=== PATIENT | female | born 1960 | race Two or more races ===

== ENCOUNTER 2024-03-11 14:20 | Inpatient (IN) | payer MEDICAID, OTHER ==
[~2024-03-11] VITALS: Ht 152.4 cm; Wt 76.9 kg
[2024-03-11 15:14] LABS: Basophils # (auto) 0.1 10 ^3/uL (0-0.2); Basophils % (auto) 1.5 % (0.0-2.0); Eosinophils # (auto) 0.1 10 ^3/uL (0-0.8); Eosinophils % (auto) 1.1 % (0.0-7.0); Hematocrit 49.3 % (36.0-46.0); Hemoglobin 16.8 g/dL (12.2-16.2); Lymphocytes # (auto) 2.7 10 ^3/uL (0.4-5.4); Lymphocytes % (auto) 34.3 % (10.0-50.0); Mean Corpuscular Hemoglobin 30.7 pg (28.0-32.0); Mean Corpuscular Volume 90.3 fL (80.0-100.0); Monocytes # (auto) 0.6 10 ^3/uL (0-1.3); Monocytes % (auto) 7.7 % (0.0-12.0); Neutrophils # (auto) 4.3 10 ^3/uL (1.6-8.6); Neutrophils % (auto) 55.4 % (37.0-80.0); Nucleated Red Blood Cells % 0.3 %; Platelet Count (auto) 272 10^3/uL (140-450); Red Blood Cells 5.46 10^6/uL (4.0-5.20); Red Cell Distribution Width 13.2 % (11.8-14.3); White Blood Cell 7.8 10^3/uL (4.4-10.8)
[2024-03-11 15:34] LABS: Alanine Aminotransferase 13 U/L (7-40); Albumin 4.6 g/dL (3.2-4.8); Alkaline Phosphatase 104 U/L (46-116); Anion Gap 8 (5-15); Aspartate Aminotransferase 11 U/L (13-40); BUN/Creatinine Ratio 13.6 (10.0-20.0); Bilirubin, Total 0.7 mg/dL (0.2-1.0); Blood Urea Nitrogen 12 mg/dL (9-23); Calcium 10.4 mg/dL (8.7-10.4); Carbon Dioxide 24 mmol/L (20-31); Chloride 112 mmol/L (98-107); Glucose 128 mg/dL (74-106); Potassium 4.1 mmol/L (3.5-5.1); Sodium 144 mmol/L (136-145); Total Protein 7.7 g/dL (5.7-8.2)
[2024-03-11] MEDS: ASPirin 81 mg TAB PO ONE (17:04)
[2024-03-12] VITALS (9 sets, daily range): BP systolic 117–185; BP diastolic 61–93; PULSE 65–105; RESP 15–19; TEMP 97.7–98.5; O2SAT 93–97
[2024-03-12] MEDS: hydrALAZINE HCL 20 MG/ML VL IV PRN (00:13)
[2024-03-12] MEDS: ATORVASTATIN 20 MG TAB PO ONE (01:45)
[2024-03-12] MEDS ORDERED: ONDANSETRON HCL 4 MG/2 ML VIAL IV PRN (01:45)
[2024-03-12 02:38] LABS: INR 1.03 (0.9-1.15); Prothrombin Time 10.9 sec (9.3-11.8)
[2024-03-12] MEDS: ENOXAPARIN SOD 40 MG/0.4 ML SYRINGE SC SCH (09:27)
[2024-03-12] MEDS: ASPirin 81 mg TAB PO SCH (09:28)
[2024-03-12 11:22] LABS: Folate (Folic Acid) 18.17 ng/mL (>5.38)
[2024-03-12] MEDS: D5W/SOD CHL 0.45% 1,000 ML IV SCH (16:18)
[2024-03-12] MEDS: ATORVASTATIN 20 MG TAB PO SCH (22:00)
[2024-03-13] VITALS (7 sets, daily range): BP systolic 154–183; BP diastolic 76–96; PULSE 71–98; RESP 17–18; TEMP 97.5–98; O2SAT 91–98
[2024-03-13 07:28] LABS: Basophils # (auto) 0.1 10 ^3/uL (0-0.2); Eosinophils # (auto) 0.2 10 ^3/uL (0-0.8); Eosinophils % (auto) 2.2 % (0.0-7.0); Hematocrit 47.6 % (36.0-46.0); Hemoglobin 16.2 g/dL (12.2-16.2); Lymphocytes # (auto) 3.1 10 ^3/uL (0.4-5.4); Mean Corpuscular Hemoglobin 31.1 pg (28.0-32.0); Mean Corpuscular Hgb Conc. 34.1 g/dL (32.0-36.0); Mean Corpuscular Volume 91.3 fL (80.0-100.0); Monocytes # (auto) 0.7 10 ^3/uL (0-1.3); Monocytes % (auto) 8.1 % (0.0-12.0); Neutrophils % (auto) 49.7 % (37.0-80.0); Nucleated Red Blood Cells % 0.6 %; Platelet Count (auto) 243 10^3/uL (140-450); Red Blood Cells 5.22 10^6/uL (4.0-5.20); Red Cell Distribution Width 13.6 % (11.8-14.3)
[2024-03-13 10:14] LABS: Chloride 113 mmol/L (98-107); Potassium 3.9 mmol/L (3.5-5.1); Sodium 145 mmol/L (136-145)
[2024-03-13 10:15] LABS: Anion Gap 7 (5-15); Carbon Dioxide 25 mmol/L (20-31)
[2024-03-13 10:16] LABS: Calcium 9.7 mg/dL (8.7-10.4)
[2024-03-13 10:20] LABS: BUN/Creatinine Ratio 19.5 (10.0-20.0); Blood Urea Nitrogen 16 mg/dL (9-23); Glucose 118 mg/dL (74-106)
[2024-03-13 11:49] LABS: Triglycerides 149 mg/dL (< 150)
[2024-03-13 11:50] LABS: LDL Cholesterol 129 mg/dL (< 100)
[2024-03-13 11:51] LABS: Cholesterol 188 mg/dL (< 200); HDL Cholesterol 40 mg/dL (40-59)
[2024-03-14] VITALS (7 sets, daily range): BP systolic 139–161; BP diastolic 74–107; PULSE 70–114; RESP 15–20; TEMP 97.1–97.7; O2SAT 94–96
[2024-03-14 05:49] LABS: Amphetamine Screen, Urine Neg (NEGATIVE); Barbiturate Scree,Urine Neg (NEGATIVE); Benzodiazephine Screen, Urine Neg (NEGATIVE); Cannabinoid Screen, Urine Neg (NEGATIVE); Cocaine Screen, Urine Neg (NEGATIVE); Opiate Scree,Urine Neg (NEGATIVE); Phencyclidine Screen, Urine Neg (NEGATIVE)
[2024-03-14 05:50] LABS: Urine Bacteria MANY /hpf (None Seen); Urine Blood 3+ /uL (Negative); Urine Clarity Ex.Turbid (Clear); Urine Color Light-Orange (Yellow); Urine Mucus FEW (None Seen); Urine Protein, UAD 1+ (Negative); Urine Specific Gravity 1.021 (1.001-1.035); Urine Urobilinogen 2 mg/dL (Negative); Urine WBC 964 /hpf (0 - 5); Urine WBC Clumps PRESENT /hpf (None Seen); Urine pH 5.5 (5.0-9.0)
[2024-03-14 07:28] LABS: Basophils # (auto) 0.1 10 ^3/uL (0-0.2); Basophils % (auto) 1.4 % (0.0-2.0); Eosinophils # (auto) 0.3 10 ^3/uL (0-0.8); Eosinophils % (auto) 4.3 % (0.0-7.0); Hematocrit 44.8 % (36.0-46.0); Hemoglobin 15.4 g/dL (12.2-16.2); Lymphocytes # (auto) 3.2 10 ^3/uL (0.4-5.4); Mean Corpuscular Hemoglobin 31.5 pg (28.0-32.0); Mean Corpuscular Hgb Conc. 34.5 g/dL (32.0-36.0); Mean Corpuscular Volume 91.4 fL (80.0-100.0); Monocytes # (auto) 0.7 10 ^3/uL (0-1.3); Neutrophils # (auto) 3.1 10 ^3/uL (1.6-8.6); Neutrophils % (auto) 42.3 % (37.0-80.0); Nucleated Red Blood Cells % 0.1 %; Platelet Count (auto) 215 10^3/uL (140-450); Red Cell Distribution Width 13.5 % (11.8-14.3); White Blood Cell 7.3 10^3/uL (4.4-10.8)
[2024-03-14 07:32] LABS: Chloride 110 mmol/L (98-107); Potassium 3.9 mmol/L (3.5-5.1); Sodium 143 mmol/L (136-145)
[2024-03-14 07:33] LABS: Anion Gap 8 (5-15); Carbon Dioxide 25 mmol/L (20-31)
[2024-03-14 07:34] LABS: Calcium 9.5 mg/dL (8.7-10.4)
[2024-03-14 07:38] LABS: Blood Urea Nitrogen 17 mg/dL (9-23); Glucose 118 mg/dL (74-106)
[2024-03-14] MEDS: cefTRIAXone 1GM/50ML D5W 50 ML IV SCH (08:51)
[2024-03-14] MEDS: hydrALAZINE HCL 20 MG/ML VL IV PRN (08:52)
[2024-03-14] MEDS: CLOPIDOGREL BISULFATE 75 MG TAB PO SCH (08:52)
[2024-03-14] MEDS: LISINOPRIL 5 MG TAB PO SCH (08:53)
[2024-03-14] MEDS: CHLORTHALIDONE 25 MG TAB PO SCH (09:01)
[2024-03-14] MEDS: LIDOCAINE VISCOUS 2% 15ML UD PO ONE (11:06)
[2024-03-14] MEDS: fentaNYL CITRATE 100 MCG/2 ML VL IV ONE (11:09)
[2024-03-14] MEDS: MIDAZOLAM HCL 2MG/2ML 2ml VIAL (1mg/ml) IV ONE (11:11)
[2024-03-14] MEDS: FLUoxetine HCL 10 MG CAP PO ONE (14:31)
[2024-03-14] MEDS: METOPROLOL SUCCINATE XL 50 MG TAB PO SCH (14:32)
[2024-03-15 01:00] VITALS: BP 140/72; PULSE 20; TEMP 97.8; O2SAT 98
[2024-03-15 05:00] VITALS: BP 158/77; PULSE 66; RESP 20; TEMP 97.9; O2SAT 96
[2024-03-15 06:57] LABS: Basophils # (auto) 0.1 10 ^3/uL (0-0.2); Basophils % (auto) 1.1 % (0.0-2.0); Eosinophils # (auto) 0.4 10 ^3/uL (0-0.8); Eosinophils % (auto) 4.6 % (0.0-7.0); Hematocrit 46.2 % (36.0-46.0); Hemoglobin 15.9 g/dL (12.2-16.2); Lymphocytes # (auto) 3.6 10 ^3/uL (0.4-5.4); Lymphocytes % (auto) 41.7 % (10.0-50.0); Mean Corpuscular Hemoglobin 31.2 pg (28.0-32.0); Mean Corpuscular Hgb Conc. 34.3 g/dL (32.0-36.0); Mean Corpuscular Volume 90.9 fL (80.0-100.0); Monocytes # (auto) 0.8 10 ^3/uL (0-1.3); Monocytes % (auto) 9.4 % (0.0-12.0); Neutrophils # (auto) 3.7 10 ^3/uL (1.6-8.6); Neutrophils % (auto) 43.2 % (37.0-80.0); Nucleated Red Blood Cells % 0.1 %; Platelet Count (auto) 229 10^3/uL (140-450); Red Blood Cells 5.09 10^6/uL (4.0-5.20); Red Cell Distribution Width 13.4 % (11.8-14.3); White Blood Cell 8.7 10^3/uL (4.4-10.8)
[2024-03-15 07:11] LABS: Chloride 109 mmol/L (98-107); Potassium 3.8 mmol/L (3.5-5.1); Sodium 142 mmol/L (136-145)
[2024-03-15 07:12] LABS: Anion Gap 8 (5-15); Calcium 9.9 mg/dL (8.7-10.4); Carbon Dioxide 25 mmol/L (20-31)
[2024-03-15 07:17] LABS: BUN/Creatinine Ratio 10.6 (10.0-20.0); Blood Urea Nitrogen 9 mg/dL (9-23); Glucose 129 mg/dL (74-106)
[2024-03-15 08:00] VITALS: PULSE 92
[2024-03-15 08:38] VITALS: BP 147/65; PULSE 84; RESP 17; TEMP 98.3; O2SAT 98
[2024-03-15] MEDS: FLUoxetine HCL 10 MG CAP PO SCH (09:17)
[2024-03-15] MEDS: ERGOCALCIFEROL 50,000 UNIT(1.25MG) CAP PO SCH (09:18)
[2024-03-15] MEDS ORDERED: METO-6 PO (11:07)
[2024-03-15] MEDS ORDERED: ERGO1CAP23 PO (11:07)
[2024-03-15] MEDS ORDERED: ASPI-325 PO (11:07)
[2024-03-15] MEDS ORDERED: CLOP75TA70 PO (11:07)
[2024-03-15] MEDS ORDERED: LISI-275 PO (11:07)
[2024-03-15] MEDS ORDERED: ATOR20TA50 PO (11:07)
[2024-03-15] MEDS ORDERED: FLUO1TAB12 PO (11:49)
[2024-03-15 12:12] VITALS: BP 147/65; PULSE 84; RESP 16; TEMP 36.8; O2SAT 96
[2024-03-15 12:36] VITALS: BP 126/68; PULSE 80; RESP 16; TEMP 98.3; O2SAT 97
== END 2024-03-15 13:43 | disposition home or self-care (01) | DRG 45 ==
LOC: ER 14:20 → TELE-EAST 23:03 → TELE 23:03 → TELE-EAST 23:43
PROVIDERS: ADMIT Internal Medicine; ATTEND Internal Medicine
PROC: B24BZZ4 Ultrasonography of Heart with Aorta, Transesophageal (ICD-10-PCS; principal; 2024-03-14)
DX: I63.89 Other cerebral infarction (principal); E87.3 Alkalosis; I10 Essential (primary) hypertension; D75.1 Secondary polycythemia; E66.9 Obesity, unspecified; E55.9 Vitamin D deficiency, unspecified; Z83.3 Family history of diabetes mellitus; Z82.49 Family history of ischemic heart disease and other diseases of the circulatory system; Z79.899 Other long term (current) drug therapy; Z79.82 Long term (current) use of aspirin; Z79.02 Long term (current) use of antithrombotics/antiplatelets; Z68.33 Body mass index [BMI] 33.0-33.9, adult
CPT/HCPCS: 36415; 70450; 70551; 71045; 80048; 80053; 80061; 80307; 81001; 82306; 82607; 82746; 82962; 83036; 84443; 84484; 85025; 85610; 85730; 92610; 93005; 93306; 93312; 93886; 97110; 97116; 97163; 97530; 99152; G0378; J2250